=== PATIENT | male | born 1995 | race Two or more races ===

== ENCOUNTER 2022-02-27 11:31 | Emergency (ER) | payer BC, OTHER ==
[~2022-02-27] VITALS: Ht 162.6 cm; Wt 59.0 kg
[2022-02-27 11:54] VITALS: BP 132/78
[2022-02-27] MEDS ORDERED: NAPR500T31 PO (13:28)
[2022-02-27] MEDS ORDERED: CEPH-509 PO (13:28)
== END 2022-02-27 13:33 | disposition home or self-care (01) ==
LOC: ER 11:31
DX: S00.83XA Contusion of other part of head, initial encounter (principal); F12.10 Cannabis abuse, uncomplicated; W22.8XXA Striking against or struck by other objects, initial encounter; Y93.89 Activity, other specified; Y92.89 Other specified places as the place of occurrence of the external cause; Y99.8 Other external cause status